=== PATIENT | female | born 1995 | race Asian ===

== ENCOUNTER 2021-10-19 18:34 | Emergency (ER) | payer OTHER ==
[~2021-10-19] VITALS: Ht 170.2 cm; Wt 86.4 kg
[2021-10-19 19:26] VITALS: TEMP 99
[2021-10-19] MEDS ORDERED: FLEXERIL 1010 MG/TAB PO ×3 (21:52→22:27)
[2021-10-19] MEDS ORDERED: NAPROSYN500 MG PO ×3 (21:52→22:27)
[2021-10-19 23:31] VITALS: BP 109/64; PULSE 69
== END 2021-10-19 23:31 | disposition home or self-care (01) ==
LOC: COL.ER 18:34
DX: S39.012A Strain of muscle, fascia and tendon of lower back, initial encounter (principal); X50.9XXA Other and unspecified overexertion or strenuous movements or postures, initial encounter; Y92.39 Other specified sports and athletic area as the place of occurrence of the external cause
CPT/HCPCS: J1885